=== PATIENT | male | born 1980 | race Caucasian/White ===

== ENCOUNTER 2016-12-03 01:46 | Emergency (ER) | payer MEDICAID ==
[~2016-12-03] VITALS: Ht 180.3 cm; Wt 68.0 kg
[2016-12-03 01:48] VITALS: BP 100/56
== END 2016-12-03 06:18 | disposition left against medical advice (07) ==
LOC: ER 02:07
DX: F10.129 Alcohol abuse with intoxication, unspecified (principal); Z53.21 Procedure and treatment not carried out due to patient leaving prior to being seen by health care provider

== ENCOUNTER 2016-12-03 08:39 | Emergency (ER) | payer MEDICAID ==
[~2016-12-03] VITALS: Ht 180.3 cm; Wt 70.0 kg
[2016-12-03 08:54] VITALS: BP 104/67
== END 2016-12-03 12:20 | disposition left against medical advice (07) ==
LOC: ER 08:40
DX: Z53.21 Procedure and treatment not carried out due to patient leaving prior to being seen by health care provider (principal)